=== PATIENT | male | born 1990 | race Caucasian/White ===

== ENCOUNTER 2020-02-20 22:46 | Emergency (ER) | payer OTHER, SELFPAY ==
[2020-02-20 22:57] VITALS: BP 142/92; PULSE 88; RESP 16; TEMP 36.6; O2SAT 97; BMI 20.6
--- NOTE | 2020-02-20 22:57 | ED.GENADULT ---
HPI - General Adult General Chief complaint: Wound/Laceration Stated complaint: sliced thumb open to the bone Time Seen by Provider: 02/20/20 22:55 Source: patient Mode of arrival: Ambulatory Limitations: no limitations History of Present Illness HPI narrative: 29-year-old male here for evaluation of a cut to the base of his left thumb. Occurred at home when he was washing some dishes and cut on a piece of glass. He did cover it with a bandage prior to arrival. He is up-to-date on immunizations. Review of Systems Musculoskeletal Musculoskeletal: Denies tingling Comments: No pain to movement to left thumb Integumentary/Breasts Comments: Cut to the basal left thumb Neurologic Neurologic: Denies tingling Hematologic/Lymphatic Hematologic/Lymphatic: Denies easy bleeding and Denies easy bruising Patient History Medical History Healthy adult Social History marital status: lives independently: Yes Exam Initial Vital Signs Initial Vital Signs: Vital Signs Temperature 97.9 F 02/20/20 22:57 Pulse Rate 88 02/20/20 22:57 Respiratory Rate 16 02/20/20 22:57 Blood Pressure 142/92 H 02/20/20 22:57 Pulse Oximetry 97 02/20/20 22:57 Cardio Pulses: radial pulses present on the left Skin Other: 2 cm laceration on the palmar aspect of the left hand at the base of the thumb over the MCP joint. Extrem General: capillary refill normal Other: For range of motion of left thumb Psych Appearance: grossly normal and well kempt Procedures Laceration Repair Laceration 1: Site: hand Side (If applicable): left Size (cm): 2 Description: linear Depth: simple, single layer Local Anesthetic: lidocaine 1% and with bicarb Amount of anesthesia used (mL): 3 Pre-repair: wound explored, irrigated extensively and deep structures intact Skin layer closed with: nylon Size (cm): 4-0 Number of sutures: 3 Technique: simple, interrupted Course Orders Ordered: Discontinued Medications Bacitracin (Bacitracin Oint 0.9 Gm Pckt) 1 applic TOP NOW ONE Stop: 02/20/20 22:57 Last Admin: 02/20/20 23:01 Dose: 1 applic Documented by: PRETTY Lidocaine/Sodium Bicarbonate (Lido 1%/Sod Bicarb 8.4% (10ml) 10 Ml Syringe) 10 ml INJ NOW ONE Stop: 02/20/20 22:57 Last Admin: 02/20/20 23:01 Dose: 10 ml Documented by: PRETTY Vital Signs Vital signs: Vital Signs - 8 hr 02/20/20 22:57 02/20/20 23:23 Temperature 97.9 F Pulse Rate 88 77 Respiratory Rate 16 16 Blood Pressure 142/92 H 138/78 Pulse Oximetry 97 97 Medical Decision Making MDM Narrative Medical decision making narrative: Neurovascularly intact, laceration is superficial and does not involve the joint or the tendons deep. Full range of motion left thumb. Laceration was closed as described above. He is up-to-date on tetanus. Is given care instructions and return precautions and follow-up instructions. He expressed understanding and agreement. Discharge Plan Departure Patient Disposition: Home Clinical Impression: Laceration Instructions: DI for Laceration Repair Activity Restrictions/Additional Instructions: The stitches do need to be removed in 7-10 days. After 24 hours you can remove the bandage that was placed here in the ER. You then can wash your hands like normal. You can use soap and water like normal. Return to the emergency department for any new or worsening symptoms
[2020-02-20] MEDS: LIDO 1%/SOD BICARB 8.4% (10ML) 10 ML SYRINGE INJ (23:01)
[2020-02-20] MEDS: BACITRACIN OINT 0.9 GM PCKT 1 APPLIC TOP (23:01)
[2020-02-20 23:23] VITALS: BP 138/78; PULSE 77; RESP 16; O2SAT 97
== END 2020-02-20 23:24 | disposition home or self-care (01) ==
PROVIDERS: Emergency Provider Emergency Medicine
DX: S61.012A Laceration without foreign body of left thumb without damage to nail, initial encounter (principal); W25.XXXA Contact with sharp glass, initial encounter
CPT/HCPCS: 12001; 99282; 99283

== ENCOUNTER 2020-03-01 18:03 | Emergency (ER) | payer OTHER, SELFPAY ==
[2020-03-01 18:08] VITALS: PULSE 89; RESP 20; TEMP 37.3; O2SAT 100
--- NOTE | 2020-03-01 18:48 | PC.NURSE ---
pt has 3 sutures at the base of left thumb. pt states about 3 days ago one of the sutures popped partial suture noted. [place].
--- NOTE | 2020-03-01 19:19 | ED.RECABL ---
HPI - Recheck/Abnormal Lab/Rx General Chief Complaint: Recheck/Abnormal Lab/Rx Stated Complaint: STICH IN LEFT HAND HURTS REALLY BAD Time Seen by Provider: 03/01/20 18:07 Source: patient Mode of arrival: Ambulatory Limitations: no limitations History of Present Illness HPI narrative: Patient is a 29-year-old male who had stitches placed at the base of his left thumb after he sustained a cut while doing dishes. The stitches were placed approximately 10 days ago. He comes in stating that they are bothering him causing him pain. Review of Systems Constitutional Constitutional: Denies fever(s) Musculoskeletal Comments: Pain around the stitches of the left hand Integumentary/Breasts Comments: Healing wound left hand Allergic/Immunologic Allergic/Immunologic: Denies urticaria Patient History Medical History Healthy adult Social History marital status: lives independently: Yes Exam Initial Vital Signs Initial Vital Signs: Vital Signs Temperature 99.1 F 03/01/20 18:08 Pulse Rate 89 03/01/20 18:08 Respiratory Rate 20 03/01/20 18:08 Pulse Oximetry 100 03/01/20 18:08 Skin Other: The laceration at the base of his left thumb is very well appearing. There is no signs of infections. Neuro Sensory Exam: no sensory deficits noted Extrem Other: Full range of motion left thumb Course Vital Signs Vital signs: Vital Signs - 8 hr 03/01/20 18:08 Temperature 99.1 F Pulse Rate 89 Respiratory Rate 20 Pulse Oximetry 100 MDM - Recheck/Abnormal Lab/Rx MDM Narrative Medical decision making narrative: The wound appears well. Three stitches were removed. There is no dehiscence of the wound. No signs of infection. No further workup needed in the emergency department. Discharge Plan Departure Patient Disposition: Home Clinical Impression: Encounter for removal of sutures Instructions: DI for Suture Removal Activity Restrictions/Additional Instructions: Return to the emergency department for any new or worsening symptoms
== END 2020-03-01 19:33 | disposition home or self-care (01) ==
PROVIDERS: Emergency Provider Emergency Medicine
DX: Z48.02 Encounter for removal of sutures (principal)
CPT/HCPCS: 99281